=== PATIENT | female | born 1995 | race Two or more races ===

== ENCOUNTER 2019-05-11 20:10 | Emergency (ER) | payer SELFPAY ==
[2019-05-11] MEDS ORDERED: ASPIRIN 81 MG TABLET, CHEWABLE PO ONE (20:29)
--- NOTE | 2019-05-11 20:31 | ER Document Report ---
ED Medical Screen (RME) - General Chief Complaint: Chest Pain Stated Complaint: CHEST PAIN/LEFT ARM NUMBNESS Time Seen by Provider: 05/11/19 20:29 Mode of Arrival: Ambulatory Information source: Patient Notes: 23-year-old female presents to ED for complaint of left chest pain to the left shoulder with numbness down the left arm. She states she also has a headache for about 2 hours. She states she has not had any recent injuries does not have any pain to palpation. She has a full range of motion to the left shoulder. She has no tenderness to palpation to the shoulder or arm. She denies any medical history of anything except for appendicitis and . 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 Patient is alert oriented respirations regular and unlabored speaking in full sentences walks with a even steady gait. I have greeted and performed a rapid initial assessment of this patient. A comprehensive ED assessment and evaluation of the patient, analysis of test results and completion of medical decision making process will be conducted by an additional ED providers. Dictation of this chart was performed using voice recognition software; therefore, there may be some unintended grammatical errors. TRAVEL OUTSIDE OF THE [place] IN LAST 30 DAYS: No - Related Data Allergies/Adverse Reactions: morphine Allergy (Verified 05/11/19 20:15) Physical Exam - Vital signs Vitals: Temp Pulse Resp BP Pulse Ox 98.1 F 63 18 120/72 98 05/11/19 20:24 05/11/19 20:24 05/11/19 20:24 05/11/19 20:24 05/11/19 20:24 Course - Vital Signs Vital signs: Temp Pulse Resp BP Pulse Ox 98.1 F 63 18 120/72 98 05/11/19 20:24 05/11/19 20:24 05/11/19 20:24 05/11/19 20:24 05/11/19 20:24
[2019-05-11 21:01] LABS: ABSOLUTE BASOPHILS # (AUTO) 0.1 10^3/uL (0.0-0.2); ABSOLUTE EOSINOPHILS # (AUTO) 0.1 10^3/uL (0.0-0.6); ABSOLUTE LYMPHOCYTES (AUTO) 3.3 10^3/uL (0.5-4.7); ABSOLUTE MONOCYTES (AUTO) 0.4 10^3/uL (0.1-1.4); ABSOLUTE NEUT (AUTO) 5.9 10^3/uL (1.7-8.2); BASOPHILS % (AUTO) 0.6 % (0-2); EOSINOPHILS % (AUTO) 1.2 % (0-6); HEMATOCRIT 39.8 % (36.0-47.0); HEMOGLOBIN 13.1 g/dL (12.0-15.5); LYMPHOCYTES % (AUTO) 33.5 % (13-45); MEAN CORPUSCULAR HEMOGLOBIN 28.2 pg (27.0-33.4); MEAN CORPUSCULAR HGB CONC 32.8 g/dL (32.0-36.0); MEAN CORPUSCULAR VOLUME 86 fl (80-97); MONOCYTES % (AUTO) 4.1 % (3-13); PLATELET COUNT 341 10^3/uL (150-450); RED BLOOD COUNT 4.63 10^6/uL (3.72-5.28); RED CELL DISTRIBUTION WIDTH 14.8 % (11.5-14.0); SEGMENTED NEUTROPHILS % (AUTO) 60.6 % (42-78); TOTAL CELLS COUNTED % (AUTO) 100 %; WHITE BLOOD COUNT 9.7 10^3/uL (4.0-10.5)
--- NOTE | 2019-05-11 21:14 | RADIOLOGY REPORT (SQ) ---
EXAM DESCRIPTION: [facility]: XR CHEST 2 VIEWS Views: 2 CLINICAL HISTORY: 23 years Female, Left-sided chest pain with numbness to left arm COMPARISON: None. FINDINGS: The lungs are clear. No pneumothorax or significant pleural effusion. Cardiomediastinal silhouette is within normal limits. Bony structures are unremarkable for age. IMPRESSION: 1. No acute cardiothoracic abnormality.
[2019-05-11 21:31] LABS: ALANINE AMINOTRANSFERASE 17 U/L (9-52); ALBUMIN 4.1 g/dL (3.5-5.0); ALKALINE PHOSPHATASE 86 U/L (38-126); ANION GAP 8 (5-19); ASPARTATE AMINO TRANSFERASE 18 U/L (14-36); BILIRUBIN,DIRECT 0.2 mg/dL (0.0-0.4); BILIRUBIN,TOTAL 0.3 mg/dL (0.2-1.3); BLOOD UREA NITROGEN 15 mg/dL (7-20); CALCIUM 9.5 mg/dL (8.4-10.2); CARBON DIOXIDE 28 mmol/L (22-30); CHLORIDE 107 mmol/L (98-107); GLUCOSE 79 mg/dL (75-110); POTASSIUM 3.8 mmol/L (3.6-5.0); TOTAL PROTEIN 7.5 g/dL (6.3-8.2)
[2019-05-11 21:42] LABS: CREATINE KINASE MB 0.64 ng/mL (<4.55)
[2019-05-11 21:50] LABS: TROPONIN I < 0.012 ng/mL
[2019-05-11 22:15] LABS: APPEARANCE,URINE CLEAR; BILIRUBIN,URINE NEGATIVE (NEGATIVE); COLOR,URINE YELLOW; GLUCOSE, URINE NEGATIVE (NEGATIVE); KETONES,URINE NEGATIVE (NEGATIVE); LEUKOCYTE ESTERASE,URINE NEGATIVE (NEGATIVE); NITRITE,URINE NEGATIVE (NEGATIVE); PROTEIN,URINE NEGATIVE (NEGATIVE); URINE SPECIFIC GRAVITY 1.019
--- NOTE | 2019-05-11 22:37 | ER Document Report ---
ED General - General Chief Complaint: Chest Pain Stated Complaint: CHEST PAIN/LEFT ARM NUMBNESS Time Seen by Provider: 05/11/19 20:29 Mode of Arrival: Ambulatory Notes: Patient is a 23-year-old female that comes to the emergency department for chief complaint of left chest/shoulder pain that radiates to the left shoulder and top of the shoulder. She states it feels like something is "poking" her in the area intermittently. This started at 1600 today while laying out of the pool. Symptoms gradually became more noticeable. She denies shortness of breath, injury, nausea/vomiting, fever/chills, cough. She is a former smoker. She denies lower extremity swelling. She denies abdominal pain. She takes no daily medications. Only past medical history reported is history of C-sections and appendectomy. She takes no daily medications. She denies recreational drugs. TRAVEL OUTSIDE OF THE [place] IN LAST 30 DAYS: No - Related Data Allergies/Adverse Reactions: morphine Allergy (Verified 05/11/19 20:15) Past Medical History - General Information source: Patient - Social History Smoking Status: Former Smoker Frequency of alcohol use: Social Lives with: Family Family History: Reviewed & Not Pertinent Patient has suicidal ideation: No Patient has homicidal ideation: No Renal/ Medical History: Denies: Hx Peritoneal Dialysis Past Surgical History: Reports: Hx Appendectomy, Hx Section - Immunizations Immunizations up to date: Yes Hx Diphtheria, Pertussis, Tetanus Vaccination: Yes Review of Systems - Review of Systems Constitutional: No symptoms reported EENT: No symptoms reported Cardiovascular: See HPI Respiratory: See HPI Gastrointestinal: No symptoms reported Genitourinary: No symptoms reported Female Genitourinary: No symptoms reported Musculoskeletal: See HPI Skin: No symptoms reported Hematologic/Lymphatic: No symptoms reported Neurological/Psychological: No symptoms reported Physical Exam - Vital signs Vitals: Temp Pulse Resp BP Pulse Ox 98.1 F 63 18 120/72 98 05/11/19 20:24 05/11/19 20:24 05/11/19 20:24 05/11/19 20:24 05/11/19 20:24 - Notes Notes: GENERAL: Alert, interacts well. No acute distress. HEAD: Normocephalic, atraumatic. EYES: Pupils equal, round, and reactive to light. Extraocular movements intact. ENT: Oral mucosa moist, tongue midline. Oropharynx unremarkable. Airway patent. Nares patent, no nasal septal hematoma, TM's intact. NECK: Full range of motion. Supple. Trachea midline. LUNGS: Clear to auscultation bilaterally, no wheezes, rales, or rhonchi. No respiratory distress. HEART: Regular rate and rhythm. No murmur ABDOMEN: Soft, non-tender. Non-distended. Bowel sounds present in all 4 quadrants. GENITOURINARY: Deferred EXTREMITIES: Moves all 4 extremities spontaneously. No edema, normal radial and dorsalis pedis pulses bilaterally. No cyanosis. BACK: no cervical, thoracic, lumbar midline tenderness. No saddle anesthesia, normal distal neurovascular exam. Moves all extremities in full range of motion. NEUROLOGICAL: Alert and oriented x3. Normal speech. Cranial nerves II through XII grossly intact. PSYCH: Normal affect, normal mood. SKIN: Warm, dry, normal turgor. No rashes or lesions noted. Course - Re-evaluation Re-evalutation: EKG without acute finding. Chest x-ray unremarkable. CBC, chemistry unremark able. Troponin is negative. Patient is only 23 and has no concerning risk factors reported. She has no lower extremely swelling, shortness of breath, tachycardia, and she has no chest pain on my evaluation. I have a very low suspicion of ACS, pulmonary embolism, aortic dissection, or other acute intrathoracic etiology based on her symptoms. 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 test is positive. Patient states she had a menstrual cycle at the end of last month, she is currently sexually active. She denies abdominal or flank pain. She denies current vaginal bleeding. We will check a quant because patient has no idea how far along she might be. Patient did have sexual activity as recent as this past weekend. Unfortunately hCG quantitative is negative. I called the lab, asked them to repeat or fix what I suspect was a lab error with the first 1, they did repeat this and it was also negative. I apologized to the patient for her incorrect r esults about her positive , she did become anxious and somewhat stressed out when she was reported to have the , she is much more relieved when she finds out she is not. She did not have return of chest pain however. Her work-up is reassuring. She was given Valium because of her anxiety caused by her false positive result. Discussed work-up, follow-up, and return precautions in detail. Patient states understanding and agreement. Stable time of discharge. - Vital Signs Vital signs: Temp Pulse Resp BP Pulse Ox 98.8 F 63 18 113/92 H 97 05/12/19 00:08 05/11/19 20:24 05/12/19 00:01 05/12/19 00:01 05/12/19 00:01 - Laboratory Result Diagrams: 05/11/19 20:49 05/11/19 20:49 Laboratory results interpreted by me: 05/11/19 05/11/19 20:49 20:49 RDW 14.8 H Urine Urobilinogen 2.0 H - EKG Interpretation by Me Additional EKG results interpreted by me: EKG shows sinus rhythm at a rate of 60, slightly inverted T waves in a single lead only in lead III, no T wave inversions or ST segment changes in consecutive leads. CT interval is 160, QTC is 424. Discharge - Discharge Clinical Impression: Left shoulder pain Qualifiers: Chronicity: acute Qualified Code(s): M25.512 - Pain in left shoulder Chest pain Qualifiers: Chest pain type: unspecified Qualified Code(s): R07.9 - Chest pain, unspecified Condition: Stable Disposition: HOME, SELF-CARE Additional Instructions: Your work-up does not show any concerning findings at this time. Most likely this is musculoskeletal, you were given the medication that relaxes the muscles tonight, you can take [id number] anti-inflammatories and apply heat to the area if needed for the next couple of days. This should resolve. Your test was rechecked with a more specific test and was negative. You are not . Follow-up with primary care. Return if you worsen including return your severe pain, difficulty breathing, passing out, or any other concerning symptoms.
[2019-05-11] MEDS ORDERED: DIAZEPAM 5 MG TABLET PO ONE (23:57)
[2019-05-12 00:09] VITALS: BP 113/92
--- NOTE | 2019-05-12 13:59 | EKG REPORT ---
SEVERITY:- BORDERLINE ECG - SINUS RHYTHM BORDERLINE T ABNORMALITIES, INFERIOR LEADS : Confirmed by: Albert Flynn 12-May-2019 13:58:42
== END 2019-05-12 00:10 | disposition home or self-care (01) ==
LOC: ER 20:10
DX: R07.9 Chest pain, unspecified (principal); M25.512 Pain in left shoulder; Z88.6 Allergy status to analgesic agent
CPT/HCPCS: 36415; 71046; 80053; 81001; 82553; 84484; 84702; 84703; 85025; 93005; 93010; 99285